=== PATIENT | female | born 1950 | race Caucasian/White ===

== ENCOUNTER 2018-12-04 14:18 | Inpatient (IN) | payer BC, OTHER, MEDICARE ==
[2018-12-04] MEDS: ASPIRIN 81 MG TAB PO (16:38)
[2018-12-04] MEDS ORDERED: ONDANSETRON 4 MG INJ IV ×2 (17:00→17:30)
[2018-12-04] MEDS ORDERED: ACETAMINOPHEN 325 MG TAB PO ×2 (17:00→17:30)
[2018-12-04] MEDS ORDERED: HYDROCODONE/APAP (5/325) TAB PO (17:30)
[2018-12-04] MEDS ORDERED: NACL 0.9% 3 ML SYG IV (17:30)
[2018-12-04] MEDS ORDERED: LORAZEPAM 2 MG INJ IV (18:00)
[2018-12-04] MEDS: ASPIRIN 300 MG SUPP PR (18:01)
[2018-12-04] MEDS ORDERED: ATORVASTATIN 80 MG TAB PO (21:00)
[2018-12-04] MEDS: SOD CHLORIDE 0.9% 1,000 ML IV (21:31)
[2018-12-04] MEDS: ATORVASTATIN 80 MG TAB PO (21:32)
[2018-12-05] MEDS: SOD CHLORIDE 0.9% 1,000 ML IV ×3 (05:58→20:43)
[2018-12-05] MEDS: ATORVASTATIN 80 MG TAB PO (20:43)
[2018-12-06] MEDS: ASPIRIN (EC) 325 MG TAB PO (08:24)
[2018-12-06] MEDS: SOD CHLORIDE 0.9% 1,000 ML IV (15:58)
[2018-12-06] MEDS: ATORVASTATIN 80 MG TAB PO (21:55)
[2018-12-07] MEDS: SOD CHLORIDE 0.9% 1,000 ML IV (07:07)
[2018-12-07] MEDS: ASPIRIN (EC) 81 MG TAB PO (08:55)
== END 2018-12-07 16:25 | disposition home or self-care (01) | DRG 103 ==
LOC: E/R 14:18 → TEL 16:36
DX: G43.409 Hemiplegic migraine, not intractable, without status migrainosus (principal); R47.01 Aphasia; F41.9 Anxiety disorder, unspecified; E66.9 Obesity, unspecified; Z68.32 Body mass index [BMI] 32.0-32.9, adult; Z79.82 Long term (current) use of aspirin
CPT/HCPCS: 36415; 70450; 70551; 71045; 80048; 80061; 80307; 81001; 83036; 83735; 84100; 84484; 85025; 85610; 85730; 92610; 93005; 93306; 97116; 97162; 99285-25